=== PATIENT | male | born 1985 | race Caucasian/White ===

== ENCOUNTER 2016-11-08 02:50 | Emergency (ER) | payer SELFPAY ==
[~2016-11-08] VITALS: Ht 167.6 cm; Wt 103.0 kg
[2016-11-08 02:53] VITALS: Ht 167.6 cm; Wt 103.0 kg
== END 2016-11-08 04:59 | disposition left against medical advice (07) ==
LOC: FTE 02:50
DX: Z53.21 Procedure and treatment not carried out due to patient leaving prior to being seen by health care provider (principal)

== ENCOUNTER 2017-02-02 12:10 | Emergency (ER) | payer MEDICAID ==
[~2017-02-02] VITALS: Ht 180.3 cm; Wt 100.0 kg
[2017-02-02 12:13] VITALS: Ht 180.3 cm; Wt 100.0 kg
[2017-02-02] MEDS ORDERED: NAPROXEN 500 MG TAB PO ONE (14:30)
[2017-02-02] MEDS ORDERED: IBUPROFEN 600 MG TAB PO ONE (14:30)
[2017-02-02] MEDS ORDERED: IBUP-1542 PO (14:30)
--- NOTE | 2017-02-02 14:37 | ERD ---
ER Documentation Chief Complaint Date/Time DATE: 02/02/17 TIME: 14:32 Chief Complaint RAMESH SINCE THIS AM HPI This is a 31-year-old male that presents to the ER with a headache that is located across his forehead that started this morning. Headache started gradually and is nonradiating. He describes pain as throbbing. He has not taken any medications for his headache. Patient has experienced headaches like this in the past, however has not had a headache for a while now. This is not the worst headache of his life. He denies any photophobia.. He has not had any trauma. He denies any recent cough or cold symptoms. He denies any fevers or chills. He denies any neck pain or neck stiffness. ROS 12 point review of systems was done, all negative except per HPI. Medications Home Meds Active Scripts Ibuprofen* (Motrin*) 600 Mg Tab, 600 MG PO Q6, #30 TAB Prov:LIZETTE CLEVELAND 02/02/17 PMhx/Soc Hx Alcohol Use: No Hx Substance Use: No Hx Tobacco Use: No Physical Exam Vitals Vital Signs Date Time Temp Pulse Resp B/P Pulse Ox O2 Delivery O2 Flow Rate FiO2 02/02/17 12:13 98.1 99 18 117/70 99 Physical Exam GENERAL: The patient is well developed and appropriate for usual state of health , in no apparent distress. HEENT: Atraumatic. Conjunctivae are pink. Pupils equal, round, and reactive to light. Extraocular muscles are grossly intact. Bilateral tympanic membranes are clear with no evidence of erythema, bulging or perforation. No sinus tenderness. NECK: C-spine is soft and supple. There is no cervical lymphadenopathy. CHEST: Clear to auscultation bilaterally. There are no rales, wheezes or rhonchi. HEART: Regular rate and rhythm. No murmurs, clicks, rubs or gallops. EXTREMITIES: Equal pulses bilaterally. There is no peripheral clubbing, cyanosis or edema. No focal swelling or erythema. Full range of motion. Grossly neurovascularly intact. NEURO: Alert and oriented. Cranial nerves II through XII are intact. Motor strength in all 4 extremities with 5/5 strength. Sensation grossly intact. Normal speech and gait. Negative Rhomberg. +2 DTRs. SKIN: There is no apparent rash or petechia. The skin is warm and dry. Results 24 hrs Current Medications Medications (Trade) Dose Ordered Sig/Poornima Route PRN Reason Start Time Stop Time Status Last Admin Dose Admin Naproxen (Naprosyn) 500 mg ONCE ONCE PO 02/02/17 14:30 02/02/17 14:30 DC Ibuprofen (Motrin) 600 mg ONCE ONCE PO 02/02/17 14:30 02/02/17 14:31 DC Procedures/MDM Differential Diagnosis includes but is not limited to; tension headache, migraine headache, cluster headache, sinus headache, nonspecific febrile headache, trigeminal neurologia, subdural hematoma, subarachnoid bleeding, meningitis, encephalitis. Patient is neurologically intact with no focal neurological deficits. At this time suspicion for acute intracranial pathology is low. This is likely a tension headache. Patient is extremely well-appearing , afebrile and is not in severe pain in the ER. He was given ibuprofen for his headache and felt significantly better. That imaging is needed at this time as his physical examination is completely benign, and there are no risk factors concerning for acute intracranial pathology. Patient has had these headaches in the past and it is not the worst headache of his life. Patient is to follow- up with his primary care doctor within 1-2 days return to ER sooner if symptoms worsen. My medical decision making shared with the patient he understands and agrees with plan Departure Diagnosis: Primary Impression: Headache Condition: Stable Patient Instructions: Self-Care for Headaches Additional Instructions: Call your primary care doctor TOMORROW for an appointment during the next 1-2 days.See the doctor sooner or return here if your condition worsens before your appointment time. LIZETTE CLEVELAND Feb 02, 2017 14:37
[2017-02-02 14:41] VITALS: BP 126/69; PULSE 72; RESP 18; TEMP 98.1
== END 2017-02-02 14:42 | disposition home or self-care (01) ==
LOC: FTE 12:10
DX: R51 Headache (principal)
CPT/HCPCS: Z7502; Z7610; 99283